=== PATIENT | male | born 1945 | race Caucasian/White ===

== ENCOUNTER 2020-11-06 21:07 | Inpatient (IN) | payer MEDICARE ==
[~2020-11-06] VITALS: Ht 182.9 cm; Wt 86.6 kg
[2020-11-06 21:08] VITALS: BP 137/76
[2020-11-06] MEDS ORDERED: METFORMIN HCL500 M3 PO (21:26)
[2020-11-06] MEDS ORDERED: CARVEDILOL25 MG PO (21:27)
[2020-11-06] MEDS ORDERED: GEMFIBROZIL 60600 MG PO (21:27)
[2020-11-06] MEDS ORDERED: LISINOPRIL20 MG PO (21:28)
[2020-11-06] MEDS ORDERED: JANTOVEN5 MG PO (21:28)
[2020-11-06] MEDS ORDERED: NORVASC10 MG PO (21:28)
[2020-11-06] MEDS ORDERED: LANOXIN 0.25M0.25 M1 PO (21:29)
[2020-11-06] MEDS ORDERED: GLUCOSAMINE H1500 MG PO (21:29)
[2020-11-06] MEDS ORDERED: OCUVITE ADULT1 EAC1 PO (21:31)
[2020-11-06] MEDS ORDERED: OPTIFLEX-C400 MG PO (21:31)
[2020-11-06] MEDS ORDERED: SUPER THERAVIT1 EACH PO (21:32)
[2020-11-06] MEDS ORDERED: FISH OIL 1,0001 EAC9 PO (21:32)
[2020-11-06] MEDS ORDERED: ASA81BEC PO (21:33)
[2020-11-06] MEDS ORDERED: ETODOLAC 300 M300 MG PO (21:34)
[2020-11-06] MEDS ORDERED: ALLOPURINOL 10100 M1 PO (21:34)
[2020-11-06] MEDS ORDERED: MITIGARE0.6 MG PO (21:34)
[2020-11-06 21:36] LABS: ABSOLUTE BASOPHILS 0.1 thou/uL (0.0-0.2); ABSOLUTE EOSINOPHILS 0.6 thou/uL (0.0-0.7); ABSOLUTE LYMPHOCYTES 2.3 thou/uL (0.8-5.3); ABSOLUTE MONOCYTES 0.9 thou/uL (0.0-1.2); ABSOLUTE NEUTROPHILS 5.1 thou/uL (1.6-8.1); BASOPHILS 1.3 %; EOSINOPHILS 6.2 %; HEMATOCRIT 40.9 % (42.0-52.0); HEMOGLOBIN 13.5 gm/dL (14.0-18.0); LYMPHOCYTES 25.4 %; MCH 28.7 pg (26.0-34.0); MONOCYTES 9.6 %; MPV 9.2 fl. (7.2-11.1); NUCLEATED RBCS 0 /100WBC; PLATELET COUNT* 301 thou/uL (150-400); POLYS 57.5 %; RBC 4.71 mil/uL (4.50-6.00); RDW-CV 14.4 % (10.5-14.5); WBC 8.9 thou/uL (4.0-11.0)
[2020-11-06 21:47] LABS: INR 2.7; PROTIME 26.9 Seconds (9.20-11.50)
[2020-11-06 21:49] LABS: CALCIUM 10.1 mg/dL (8.5-10.1); CREATININE 1.4 mg/dL (0.6-1.3); POTASSIUM 5.3 mmol/L (3.5-5.1)
[2020-11-06 22:04] LABS: ALBUMIN 3.7 g/dL (3.4-5.0); MAGNESIUM 1.5 mg/dL (1.8-2.4); TOTAL BILIRUBIN 0.3 mg/dL (<0.1-1.0); TOTAL PROTEIN 9.9 g/dL (6.4-8.2)
[2020-11-06 23:48] LABS: BE -3.6 mmol/L (-2 to +3); PCO2 45.3 mmHg (35.0-45.0); PO2 64.8 mmHg (75.0-100.0); pH 7.317 (7.340-7.450)
[2020-11-07] VITALS (17 sets, daily range): BP systolic 114–154; BP diastolic 54–104
[2020-11-07 11:38] LABS: HEMATOCRIT 37.6 % (42.0-52.0); HEMOGLOBIN 12.5 gm/dL (14.0-18.0); MCH 28.6 pg (26.0-34.0); MCHC 33.2 g/dL (28.0-37.0); MPV 8.9 fl. (7.2-11.1); NUCLEATED RBCS 0 /100WBC; PLATELET COUNT* 270 thou/uL (150-400); RBC 4.37 mil/uL (4.50-6.00); RDW-CV 14.5 % (10.5-14.5); WBC 9.5 thou/uL (4.0-11.0)
[2020-11-07 11:43] LABS: CALCIUM 9.8 mg/dL (8.5-10.1); CREATININE 1.1 mg/dL (0.6-1.3); POTASSIUM 5.1 mmol/L (3.5-5.1)
[2020-11-07 11:46] LABS: INR 2.5; PROTIME 25.2 Seconds (9.20-11.50)
[2020-11-07 12:08] LABS: ABSOLUTE MONOCYTES 0.4 thou/uL (0.0-1.2); ABSOLUTE NEUTROPHILS 8.2 thou/uL (1.6-8.1); ANISOCYTOSIS 1+; PLATELET ESTIMATE ADEQUATE; POIKILOCYTOSIS 1+
--- NOTE | 2020-11-07 15:50 | EKG ---
[place] [address] ELECTROCARDIOGRAM REPORT Name: ZORAIDAKARYN Flores Room: [address] IN ..#: [id number] Admission: 11/06/20 Attend Phys: Christopher Olivas Discharge: Date of : 47 Date of Service: 11/06/202110 Report #: [id number] THIS REPORT FOR: //name// [facility] ED Test Date: 2020-11-06 Test Time: 21:11:09 Pat Name: KARYN CONWAY Department: Room: [facility] Gender: M Rounder Hand: : 1945 Requested By: Shanti Hannah Order Number: [id number] MD: Gorge Forbes Measurements Intervals Allen Rate: 88 P: 109 MD: 184 QRS: -14 QRSD: 94 T: 30 QT: 323 QTc: 391 Interpretive Statements Sinus rhythm Low voltage, extremity leads No previous ECG available for comparison Electronically Signed On 11-07-2020 15:49:57 CDT by Gorge Forbes [email or web address] <ELECTRONICALLY SIGNED> By: Gorge Forbes MD, [facility] 11/07/20 1549 10 10 Gorge Forbes MD, [facility] /EPI
[2020-11-07 17:41] LABS: URINE BILIRUBIN NEGATIVE (Negative); URINE BLOOD NEGATIVE (Negative); URINE CLARITY CLEAR; URINE COLOR YELLOW; URINE GLUCOSE-RANDOM NEGATIVE (Negative); URINE KETONES NEGATIVE (Negative); URINE LEUKOCYTES-REFLEX NEGATIVE (Negative); URINE NITRITE-REFLEX NEGATIVE (Negative); URINE PROTEIN NEGATIVE (Negative); URINE SPECIFIC GRAVITY 1.015 (1.005-1.030); URINE UROBILINOGEN 0.2 E.U./dl (0.2-1.0)
[2020-11-08 03:53] VITALS: BP 138/62
[2020-11-08 04:54] LABS: INR 2.1; PROTIME 21.4 Seconds (9.20-11.50)
[2020-11-08 04:57] LABS: ABSOLUTE BASOPHILS 0.1 thou/uL (0.0-0.2); ABSOLUTE LYMPHOCYTES 0.8 thou/uL (0.8-5.3); ABSOLUTE MONOCYTES 0.3 thou/uL (0.0-1.2); ABSOLUTE NEUTROPHILS 12.3 thou/uL (1.6-8.1); BASOPHILS 0.4 %; EOSINOPHILS 0.2 %; HEMOGLOBIN 11.3 gm/dL (14.0-18.0); LYMPHOCYTES 6.2 %; MCH 28.5 pg (26.0-34.0); MCHC 33.1 g/dL (28.0-37.0); MONOCYTES 2.1 %; MPV 9.3 fl. (7.2-11.1); NUCLEATED RBCS 0 /100WBC; PLATELET COUNT* 252 thou/uL (150-400); POLYS 91.1 %; RBC 3.95 mil/uL (4.50-6.00); RDW-CV 14.5 % (10.5-14.5); WBC 13.5 thou/uL (4.0-11.0)
[2020-11-08 04:58] LABS: ALBUMIN 3.2 g/dL (3.4-5.0); CALCIUM 9.4 mg/dL (8.5-10.1); CREATININE 0.8 mg/dL (0.6-1.3); MAGNESIUM 1.6 mg/dL (1.8-2.4); POTASSIUM 5.3 mmol/L (3.5-5.1); TOTAL BILIRUBIN 0.3 mg/dL (<0.1-1.0); TOTAL PROTEIN 8.4 g/dL (6.4-8.2)
[2020-11-08 08:00] VITALS: BP 146/82
[2020-11-08 16:56] VITALS: BP 115/75
[2020-11-09] VITALS (7 sets, daily range): BP systolic 120–139; BP diastolic 53–88
[2020-11-09 04:31] LABS: ABSOLUTE MONOCYTES 0.5 thou/uL (0.0-1.2); ABSOLUTE NEUTROPHILS 12.7 thou/uL (1.6-8.1); HEMATOCRIT 35.5 % (42.0-52.0); HEMOGLOBIN 11.4 gm/dL (14.0-18.0); LYMPHOCYTES 6.9 %; MCH 27.5 pg (26.0-34.0); MCHC 32.1 g/dL (28.0-37.0); MCV 85.8 fL (80.0-100.0); MONOCYTES 3.7 %; MPV 9.3 fl. (7.2-11.1); NUCLEATED RBCS 0 /100WBC; PLATELET COUNT* 261 thou/uL (150-400); POLYS 89.4 %; RBC 4.14 mil/uL (4.50-6.00); RDW-CV 14.3 % (10.5-14.5); WBC 14.2 thou/uL (4.0-11.0)
[2020-11-09 04:41] LABS: INR 1.6; PROTIME 16.3 Seconds (9.20-11.50)
[2020-11-09 04:44] LABS: CALCIUM 9.3 mg/dL (8.5-10.1); CREATININE 0.9 mg/dL (0.6-1.3); MAGNESIUM 1.8 mg/dL (1.8-2.4); POTASSIUM 4.7 mmol/L (3.5-5.1); TOTAL BILIRUBIN 0.1 mg/dL (<0.1-1.0); TOTAL PROTEIN 8.1 g/dL (6.4-8.2)
[2020-11-10] VITALS (7 sets, daily range): BP systolic 119–156; BP diastolic 49–79
[2020-11-10 03:46] LABS: ABSOLUTE LYMPHOCYTES 0.9 thou/uL (0.8-5.3); ABSOLUTE MONOCYTES 0.7 thou/uL (0.0-1.2); ABSOLUTE NEUTROPHILS 10.1 thou/uL (1.6-8.1); BASOPHILS 0.1 %; HEMATOCRIT 35.9 % (42.0-52.0); HEMOGLOBIN 12.2 gm/dL (14.0-18.0); LYMPHOCYTES 7.4 %; MCH 28.7 pg (26.0-34.0); MCHC 33.9 g/dL (28.0-37.0); MCV 84.6 fL (80.0-100.0); MONOCYTES 6.2 %; MPV 9.3 fl. (7.2-11.1); NUCLEATED RBCS 0 /100WBC; PLATELET COUNT* 275 thou/uL (150-400); POLYS 86.3 %; RBC 4.25 mil/uL (4.50-6.00); RDW-CV 14.1 % (10.5-14.5); WBC 11.7 thou/uL (4.0-11.0)
[2020-11-10 03:47] LABS: INR 1.3; PROTIME 13.6 Seconds (9.20-11.50)
[2020-11-10 03:48] LABS: ALBUMIN 3.2 g/dL (3.4-5.0); CALCIUM 9.1 mg/dL (8.5-10.1); POTASSIUM 4.4 mmol/L (3.5-5.1); TOTAL BILIRUBIN 0.3 mg/dL (<0.1-1.0); TOTAL PROTEIN 8.4 g/dL (6.4-8.2)
--- NOTE | 2020-11-10 13:05 | 2DMMODE ---
[place] [address] 2 D/M-MODE ECHOCARDIOGRAM Name: KARYN CONWAY Room: 003P [facility] IN .R.#: [id number] Admission: 11/06/20 Attend Phys: Christopher Olivas Discharge: Date of : 47 Date of Service: 11/10/20 1304 Report #: [id number] THIS REPORT FOR: cc: Carlos Enrique Britt Bradley L. DO Holkins, John M. MD [facility] ~ APPROVED REPORT Study performed: 11/10/2020 09:34:20 EXAM: Comprehensive 2D, Doppler, and color-flow Echocardiogram Patient Location: In-Patient Room #: 003 Status: routine BSA: 2.16 HR: 78 bpm BP: 119/52 mmHg Rhythm: NSR Other Information Study Quality: Good Indications Dyspnea 2D Dimensions IVSd: 11.20 (7-11mm) LVOT Diam: 23.19 (18-24mm) LVDd: 50.85 mm PWd: 11.68 (7-11mm) Ascending Ao: 32.92 (22-36mm) LVDs: 22.46 (25-40mm) Aortic Root: 37.64 mm Volumes Left Atrial Volume (Systole) LA ESV Index: 25.50 mL/m2 Aortic Valve AoV Peak Rakesh.: 2.40 m/s AO Peak Gr.: 23.13 mmHg LVOT Max P.76 mmHg AO Mean Gr.: 13.48 mmHg LVOT Mean P.34 mmHg LVOT Max V: 1.30 m/s AO V2 VTI: 54.89 cm LVOT Mean V: 0.84 m/s YOVANY (VTI): 2.27 cm2 LVOT V1 VTI: 29.54 [place] [address] 2 D/M-MODE ECHOCARDIOGRAM Name: KARYN CONWAY Room: [address] IN ..#: [id number] Admission: 11/06/20 Attend Phys: Christopher Olivas Discharge: Date of : 47 Date of Service: 11/10/20 1304 Report #: [id number] Mitral Valve MV Mean Gr.: 3.07 mmHg E/A Ratio: 0.64 MV Decel. Time: 459.30 ms MV E Max Rakesh.: 0.73 m/s MV PHT: 133.20 ms MVA (PHT): 1.65 cm2 TDI E/Lateral E': 8.11 E/Medial E': 10.43 Medial E' Rakesh.: 0.07 m/s Lateral E' Rakesh.: 0.09 m/s Pulmonary Valve PV Peak Rakesh.: 0.99 m/s PV Peak Gr.: 3.94 mmHg Left Ventricle The left ventricle is normal size. There is normal LV segmental wall motion. There is normal left ventricular wall thickness. Left ventricular systolic function is normal. The left ventricular ejection fraction is within the normal range. LVEF is 65%. Grade I - abnormal relaxation pattern. Right Ventricle The right ventricle is normal size. The right ventricular systolic function is normal. Atria The left atrium size is normal. The right atrium size is normal. Aortic Valve Moderate aortic valve sclerosis. No aortic regurgitation is present. Mild aortic stenosis. Mitral Valve Moderate mitral annular calcification. There is no mitral valve regurgitation noted. No evidence of mitral valve stenosis. Tricuspid Valve The tricuspid valve is normal in structure. Unable to assess PA pressure. Trace tricuspid regurgitation. Pulmonic Valve The pulmonary valve is normal in structure. There is no pulmonic [place] [address] 2 D/M-MODE ECHOCARDIOGRAM Name: KARYN CONWAY Room: [address]#: [id number] Admission: 11/06/20 Attend Phys: Christopher Olivas Discharge: Date of : 47 Date of Service: 11/10/20 1304 Report #: [id number] Great Vessels The aortic root is normal in size. IVC is normal in size and collapses >50% with inspiration. Pericardium There is no pericardial effusion. <Conclusion> The left ventricle is normal size. There is normal left ventricular wall thickness. Left ventricular systolic function is normal. The left ventricular ejection fraction is within the normal range. LVEF is 65%. Grade I - abnormal relaxation pattern. The right ventricle is normal size. The left atrium size is normal. Moderate aortic valve sclerosis. No aortic regurgitation is present. Mild aortic stenosis. Moderate mitral annular calcification. There is no mitral valve regurgitation noted. No evidence of mitral valve stenosis. The tricuspid valve is normal in structure. IVC is normal in size and collapses >50% with inspiration. There is no pericardial effusion. There is normal LV segmental wall motion. <ELECTRONICALLY SIGNED> By: Karyn Mancia MD, FACC 11/10/20 1304 1304 1304 Karyn Mancia MD, FACC /INF
--- NOTE | 2020-11-10 15:22 | CON ---
[address] [address] CONSULTATION Name: KARYN CONWAY Room: [address] IN M.R.#: [id number] Admission: 11/06/20 Attend Phys: Cliff Payan Discharge: Date of : 47 Report #: [id number] THIS REPORT FOR: cc: Carlos Enrique Britt Bradley L. DO Pervez, Adeel MD ~ DOC #: [id number] Frank Conte MD DATE OF CONSULTATION: 11/07/2020 Consult has been requested by Dr. Ravi Salcedo. INDICATION FOR CONSULTATION: Acute on chronic hypoxemic respiratory failure/pneumothorax. HISTORY OF PRESENT ILLNESS: This is a 75-year-old gentleman. He is an active smoker, also he is reported to be taking 4-5 beers a day. He has COPD. He is on oxygen long-term. He is not on CPAP or BiPAP. I do not see any interstitial lung disease mentioned on his records; however, I do not have previous records available. The patient has had limited medical followup in the past. The patient is now admitted with acute shortness of breath. He reports also having a cough with small amounts of sputum. Sputum is mostly clear. He did have some chest pain with respiration and coughing as well. He says that for the last several days, he has also been coughing up blood. The patient on admission had a chest x-ray performed, which shows extensive bilateral infiltrates. There is also a large pneumothorax on the right side. The patient had a chest tube in place. A chest tube placed by ER. The patient has had significant bleeding from the chest tube site and the chest tube position may also need to be adjusted. Therefore, I requested surgery to see the patient and Dr. Gotti did see the patient. The patient currently remains on 15 liters of oxygen via high flow nasal cannula. In addition, he is also requiring a Ventimask to maintain O2 saturation in the low 90s. He tested negative for the COVID-19 antigen. He also reports that he received 2 doses of Moderna COVID-19 vaccine. He does not have swelling of lower extremities or calf pain. Currently, does not have upper respiratory complaints. The patient provides a somewhat limited history. REVIEW OF SYSTEMS: His review of systems for 12 points is negative except as mentioned above. PAST MEDICAL HISTORY: COPD, on oxygen long-term; atrial fibrillation, on Coumadin; diabetes; hypertension; gout. I do not [place] [address] CONSULTATION Name: KARYN CONWAY Room: [address] IN [facility].#: [id number] Admission: 11/06/20 Attend Phys: Cliff Payan Discharge: Date of : 47 Report #: [id number] ventricular ejection fraction available at this time. I do not see mention of interstitial lung disease on his records. He says he had a chest x-ray to Dr. Britt's office previously, I do not have access to it. He has had limited medical followup in the past. His initial creatinine is 1.4. It is not known to me as to whether this elevation in creatinine is acute on chronic. SOCIAL HISTORY: He has an extensive history of smoking, still smokes one and a half packs a day, has smoked for more than 6 decades and also up to 4-5 beers a day. No known history of illegal drug use. ALLERGIES: No known drug allergies. CURRENT MEDICATIONS: List in [employer] reviewed. Home medication in [employer] reviewed. Note that he is on Coumadin at home. IMMUNIZATIONS: The patient reports that he received 2 doses of Moderna COVID-19 vaccine. He reports that his last dose was several weeks ago. FAMILY HISTORY: There is no known family history of COVID-19. PHYSICAL EXAMINATION: GENERAL: Alert, awake and oriented, does appear to be short of breath at rest. VITAL SIGNS: Currently, he is maintaining O2 saturation in the mid 90s; however, he is requiring a 50% Ventimask in addition to 15 liters oxygen via nasal cannula high flow to maintain O2 saturation, pulse of 96 and a blood pressure of 142/37. His respiratory rate is 17-20. He is afebrile. Body mass index is 27.7. HEENT: Head is normocephalic and atraumatic. Pupils are equal and reactive. There is no throat erythema. NECK: Does not show raised JVP asymmetry, mass or lymph nodes. CHEST: Symmetrical expansion on inspection and palpation on auscultation. LUNGS: Breath sounds are bilaterally equal. There is a chest tube in place on the right side. There is some hemorrhage from around the chest tube site. Breath sounds, however, are decreased on expirations of lung. He does have increased work of breathing. There is some accessory muscle use. HEART: Regular. There is no murmur. ABDOMEN: Soft and nontender. EXTREMITIES: Lower extremities show no edema, no calf tenderness. SKIN: Dry and intact. NEUROLOGIC: Moves all extremities bilaterally equally and spontaneously with no focal deficit identified. LABORATORY DATA: The patient's chest x-rays are as discussed above. We repeated 4 chest x-rays since yesterday. I reviewed all the films and the [address] [place] [address] CONSULTATION Name: KARYN CONWAY Room: [address] IN M.R.#: [id number] Admission: 11/06/20 Attend Phys: Cliff Payan Discharge: Date of : 47 Report #: [id number] report and I also did review with Dr. Gotti. Lab work from last night in [employer] reviewed. We just requested labs now these are pending. INR was 2.7 yesterday. Arterial blood gas from yesterday does show acute hypercarbic and hypoxemic respiratory failure with a chronic component as well. ASSESSMENT/PLAN: 1. Acute on chronic hypoxemic and hypercarbic respiratory failure. Considering significant hemothorax, we will try to limit or avoid use of BiPAP for now, I will go ahead and switch him over to a heated high-flow nasal cannula and then follow response. We will follow and also ordered a followup ABG later. 2. Pneumothorax. I requested Dr. Gotti to review. I understand that he will need a new chest tube to be inserted as the current chest tube is not in good position. His INR is 2.7. Surgery service recommended FFPs prior to the procedure. 3. Extensive bilateral infiltrates. I do not have a previous chest x-ray available at this time. If these findings are acute and these represent an extensive pneumonia, certainly it will also be possible that the patient has a previous interstitial lung disease and these findings are secondary to fibrosis. I will try to track down the patient's previous chest x-ray in the interim. I will cover him very broadly with antibiotics and therefore, I will order linezolid, Zosyn and azithromycin. We will do cultures and serologies as well. Note that his COVID-19 antigen is negative and he says that he has received 2 doses of Moderna COVID-19 vaccine as well. 4. Chronic obstructive pulmonary disease exacerbation. Agree with Solu-Medrol. We will likely continue beyond 6 doses currently ordered. We will follow. We will also continue with nebulized bronchodilators. 5. Paroxysmal atrial fibrillation. The patient currently appears to be in a sinus rhythm. Note that he is on Coumadin at home. I understand the surgery services ordering FFPs. I would like to do an echo down the line as well. 6. Diabetes. Watch glucoses closely while he is on steroid. 7. GI prophylaxis, he is on Protonix. 8. C. difficile prophylaxis. We will order Lactinex. The patient is critically ill at this time. Total time spent providing critical care to this patient today exceeds 50 minutes. Frank Conte MD AP/DEBRA/[place] [address] CONSULTATION Name: ZORAIDAKARYN Flores Room: [address] IN .R.#: [id number] Admission: 11/06/20 Attend Phys: Cliff Payan Discharge: Date of : 47 Report #: [id number] <ELECTRONICALLY SIGNED> By: Frank Conte MD 11/10/20 1522 1027 [id number] Conte MD /nt
[2020-11-10 23:06] LABS: MYCOPLASMA PNEUMONIA IgG 338 U/mL (0-99); MYCOPLASMA PNEUMONIA IgM <770 U/mL (0-769)
[2020-11-11 03:42] VITALS: BP 106/65
[2020-11-11 05:53] LABS: ABSOLUTE LYMPHOCYTES 1.7 thou/uL (0.8-5.3); ABSOLUTE MONOCYTES 0.9 thou/uL (0.0-1.2); ABSOLUTE NEUTROPHILS 8.3 thou/uL (1.6-8.1); BASOPHILS 0.1 %; LYMPHOCYTES 15.6 %; MCH 28.9 pg (26.0-34.0); MCHC 33.5 g/dL (28.0-37.0); MCV 86.4 fL (80.0-100.0); MONOCYTES 8.1 %; MPV 8.9 fl. (7.2-11.1); NUCLEATED RBCS 0 /100WBC; PLATELET COUNT* 292 thou/uL (150-400); POLYS 76.2 %; RBC 4.16 mil/uL (4.50-6.00); RDW-CV 14.3 % (10.5-14.5)
[2020-11-11 06:01] LABS: CALCIUM 9.4 mg/dL (8.5-10.1); CREATININE 0.9 mg/dL (0.6-1.3); MAGNESIUM 1.9 mg/dL (1.8-2.4); POTASSIUM 4.5 mmol/L (3.5-5.1)
[2020-11-11 06:03] LABS: INR 1.2; PROTIME 12.4 Seconds (9.20-11.50)
[2020-11-11 08:00] VITALS: BP 127/75
[2020-11-11 12:00] VITALS: BP 112/71
[2020-11-11 16:00] VITALS: BP 93/58
[2020-11-11 20:00] VITALS: BP 160/79
[2020-11-12] VITALS: BP 107/45
[2020-11-12 04:00] VITALS: BP 104/52
[2020-11-12 05:33] LABS: ABSOLUTE MONOCYTES 0.8 thou/uL (0.0-1.2); ABSOLUTE NEUTROPHILS 7.6 thou/uL (1.6-8.1); BASOPHILS 0.3 %; EOSINOPHILS 0.1 %; HEMATOCRIT 36.2 % (42.0-52.0); HEMOGLOBIN 11.8 gm/dL (14.0-18.0); LYMPHOCYTES 19.1 %; MCH 28.5 pg (26.0-34.0); MCHC 32.5 g/dL (28.0-37.0); MCV 87.7 fL (80.0-100.0); MPV 8.9 fl. (7.2-11.1); NUCLEATED RBCS 0 /100WBC; PLATELET COUNT* 281 thou/uL (150-400); POLYS 72.5 %; RBC 4.13 mil/uL (4.50-6.00); RDW-CV 14.3 % (10.5-14.5); WBC 10.5 thou/uL (4.0-11.0)
[2020-11-12 05:40] LABS: INR 1.1; PROTIME 11.7 Seconds (9.20-11.50)
[2020-11-12 05:41] LABS: CALCIUM 9.3 mg/dL (8.5-10.1); CREATININE 0.9 mg/dL (0.6-1.3); POTASSIUM 4.7 mmol/L (3.5-5.1)
[2020-11-12 08:00] VITALS: BP 129/74
[2020-11-12 12:17] VITALS: BP 171/54
[2020-11-12 18:15] VITALS: BP 111/55
[2020-11-12 23:38] VITALS: BP 119/63
[2020-11-13 04:19] VITALS: BP 110/55
[2020-11-13 04:38] LABS: ABSOLUTE LYMPHOCYTES 1.8 thou/uL (0.8-5.3); ABSOLUTE MONOCYTES 0.8 thou/uL (0.0-1.2); BASOPHILS 0.1 %; EOSINOPHILS 0.1 %; HEMATOCRIT 35.6 % (42.0-52.0); HEMOGLOBIN 11.7 gm/dL (14.0-18.0); LYMPHOCYTES 15.3 %; MCH 28.5 pg (26.0-34.0); MCHC 32.8 g/dL (28.0-37.0); MCV 86.9 fL (80.0-100.0); MONOCYTES 7.1 %; NUCLEATED RBCS 0 /100WBC; PLATELET COUNT* 277 thou/uL (150-400); POLYS 77.4 %; RDW-CV 14.1 % (10.5-14.5); WBC 11.6 thou/uL (4.0-11.0)
[2020-11-13 04:47] LABS: PROTIME 11.1 Seconds (9.20-11.50)
[2020-11-13 05:24] LABS: CREATININE 0.8 mg/dL (0.6-1.3); MAGNESIUM 1.9 mg/dL (1.8-2.4); POTASSIUM 4.6 mmol/L (3.5-5.1)
[2020-11-13 08:00] VITALS: BP 142/70
[2020-11-13] MEDS ORDERED: ATIVAN1 M1 PO (10:44)
[2020-11-13 14:36] VITALS: BP 142/70
== END 2020-11-13 16:43 | disposition hospice, home (50) | DRG 177 ==
LOC: M.ERS 21:07 → M.TBA-ER 23:49 → M.ICU 23:49 → M.2W 11-10 20:51
PROVIDERS: Emergency Medicine; Family Medicine; Internal Medicine; Internal Medicine Critical Care Medicine; Surgery; ADMIT Internal Medicine; ATTEND Internal Medicine
PROC: 0W9930Z Drainage of Right Pleural Cavity with Drainage Device, Percutaneous Approach (ICD-10-PCS; principal; 2020-11-06)
PROC: 5A09357 Assistance with Respiratory Ventilation, Less than 24 Consecutive Hours, Continuous Positive Airway Pressure (ICD-10-PCS; 2020-11-07)
PROC: 5A0935A Assistance with Respiratory Ventilation, Less than 24 Consecutive Hours, High Flow/Velocity Cannula (ICD-10-PCS; 2020-11-07)
PROC: 0W9930Z Drainage of Right Pleural Cavity with Drainage Device, Percutaneous Approach (ICD-10-PCS; 2020-11-07)
PROC: 0WP9X0Z Removal of Drainage Device from Right Pleural Cavity, External Approach (ICD-10-PCS; 2020-11-07)
PROC: 30233K1 Transfusion of Nonautologous Frozen Plasma into Peripheral Vein, Percutaneous Approach (ICD-10-PCS; 2020-11-07)
PROC: 5A0935A Assistance with Respiratory Ventilation, Less than 24 Consecutive Hours, High Flow/Velocity Cannula (ICD-10-PCS; 2020-11-09)
PROC: 5A0935A Assistance with Respiratory Ventilation, Less than 24 Consecutive Hours, High Flow/Velocity Cannula (ICD-10-PCS; 2020-11-10)
PROC: 5A0935A Assistance with Respiratory Ventilation, Less than 24 Consecutive Hours, High Flow/Velocity Cannula (ICD-10-PCS; 2020-11-11)
PROC: 5A0935A Assistance with Respiratory Ventilation, Less than 24 Consecutive Hours, High Flow/Velocity Cannula (ICD-10-PCS; 2020-11-12)
DX: J15.6 Pneumonia due to other Gram-negative bacteria (principal); J96.21 Acute and chronic respiratory failure with hypoxia; J96.22 Acute and chronic respiratory failure with hypercapnia; J93.11 Primary spontaneous pneumothorax; C34.90 Malignant neoplasm of unspecified part of unspecified bronchus or lung; Z20.822 Contact with and (suspected) exposure to COVID-19; E11.9 Type 2 diabetes mellitus without complications; I10 Essential (primary) hypertension; M10.9 Gout, unspecified; I48.0 Paroxysmal atrial fibrillation; F17.210 Nicotine dependence, cigarettes, uncomplicated; J43.9 Emphysema, unspecified; Z79.82 Long term (current) use of aspirin; Z79.899 Other long term (current) drug therapy